=== PATIENT | female | born 1955 | race African-American/Black ===

== ENCOUNTER 2016-08-01 11:58 | Day surgery (SDC) | payer OTHER ==
[~2016-08-01] VITALS: Ht 166.4 cm; Wt 91.2 kg
[~2016-08-01 11:58] MED LIST: DIOVAN320 MG PO; ELIQUIS5 MG PO; LOPRESSOR100 M1 PO; NORVASC10 MG PO; RENA-VITE RX T1 EACH PO; RENVELA800 MG PO
[2016-08-01 12:36] LABS: HEMATOCRIT 36.1 % (36.0-46.0); MCH 31.6 PG (29.0-34.0); MCHC 33.2 G/DL (30.0-36.0); MEAN PLAT.VOLUME 9.7 uM^3 (9.5-12.4); PLATELET COUNT 199 K/uL (156-360); RBC DIS.WIDTH-CV 13.2 % (11.8-14.6); RBC DIS.WIDTH-SD 45.9 % (39-53); WHITE BLOOD COUNT 7.2 K/uL (4.1-10.2)
[2016-08-01 12:50] LABS: CHLORIDE 99 mEq/L (99-109); POTASSIUM 3.2 mEq/L (3.7-5.4); SODIUM 139 mEq/L (136-147)
[2016-08-01 12:52] LABS: GLUCOSE 106 mg/dL (70-99)
[2016-08-01 12:53] LABS: ANION GAP 19 MEQ/L (2-14)
[2016-08-01 12:55] LABS: GFR ESTIMATE (CALCULATED) 14 mL/min/
[2016-08-01 12:56] LABS: UREA NITROGEN (BUN) 17 mg/dL (9-23)
[2016-08-01 13:04] VITALS: BP 156/94
[2016-08-01 13:56] LABS: METH RESISTANT S AUREUS PCR NEGATIVE (NEGATIVE)
[2016-08-01 13:58] LABS: PROBE CHECK PASS; SPECIMEN PROCESSING CONTROL PASS
[2016-08-01 16:41] LABS: POINT-OF-CARE METER ID UU13113675
[2016-08-01 17:45] VITALS: BP 146/90
[2016-08-01 18:18] VITALS: BP 148/82
== END 2016-08-01 18:25 | disposition home or self-care (01) ==
LOC: SDC 11:58
PROVIDERS: Surgery
PROC: 05WY0JZ Revision of Synthetic Substitute in Upper Vein, Open Approach (ICD-10-PCS; principal; 2016-08-01)
DX: T82.898A Other specified complication of vascular prosthetic devices, implants and grafts, initial encounter (principal); I12.0 Hypertensive chronic kidney disease with stage 5 chronic kidney disease or end stage renal disease; N18.6 End stage renal disease; Z99.2 Dependence on renal dialysis; Y83.2 Surgical operation with anastomosis, bypass or graft as the cause of abnormal reaction of the patient, or of later complication, without mention of misadventure at the time of the procedure; Z79.01 Long term (current) use of anticoagulants
CPT/HCPCS: 80048; 82948; 85027; 87641; 93005; C1768; J0690; J1644; J2250; J2720; J3010